=== PATIENT | male | born 1985 | race Caucasian/White ===

== ENCOUNTER 2017-09-23 22:05 | Day surgery (SDC) | payer MEDICAID ==
[~2017-09-23] VITALS: Ht 180.3 cm; Wt 96.0 kg
[2017-09-24] VITALS (7 sets, daily range): BP systolic 105–128; BP diastolic 51–78; Ht 180.3 cm; Wt 96.0 kg
[2017-09-24 06:21] LABS: BASOPHILS 0.5 % (0-2); EOSINOPHILS 2.7 % (0-7); HEMATOCRIT 43.4 % (42.0-54.0); HEMOGLOBIN 14.8 g/dL (13.5-17.5); IMMATURE GRANULOCYTES 0.3 % (0-5); LYMPHOCYTES 19.5 % (15-50); MCH 30.2 pg (26.0-34.0); MCHC 34.1 g/dL (31.0-37.0); MCV 88.6 fL (80.0-100.0); MONOCYTES 6.4 % (2-11); NEUTROPHILS 70.6 % (40-80); PLATELET COUNT 218 10x3/uL (130-400); RDW 12.5 % (11.5-14.5); WBC 6.6 10x3/uL (4.8-10.8)
[2017-09-24 07:05] LABS: ALBUMIN 3.4 g/dL (3.4-5.0); ANION GAP 13.6 mmol/L (8-16); BILIRUBIN - TOTAL 3.06 mg/dL (0.2-1.3); CALCIUM 8.6 mg/dL (8.5-10.1); CARBON DIOXIDE 27.3 mmol/L (21.0-32.0); CREATININE - SERUM 1.2 mg/dL (0.6-1.3); POTASSIUM - SERUM 3.9 mmol/L (3.5-5.1); PROTEIN - SERUM 6.7 g/dL (6.4-8.2)
[2017-09-25 05:14] VITALS: BP 94/47
[2017-09-25 06:30] LABS: BASOPHILS 0.1 % (0-2); EOSINOPHILS 0.1 % (0-7); HEMATOCRIT 40.1 % (42.0-54.0); HEMOGLOBIN 13.8 g/dL (13.5-17.5); IMMATURE GRANULOCYTES 0.4 % (0-5); LYMPHOCYTES 11.8 % (15-50); MCH 30.2 pg (26.0-34.0); MCHC 34.4 g/dL (31.0-37.0); MCV 87.7 fL (80.0-100.0); MONOCYTES 6.5 % (2-11); NEUTROPHILS 81.1 % (40-80); PLATELET COUNT 219 10x3/uL (130-400); RBC 4.57 10x6/uL (4.20-6.10); RDW 12.2 % (11.5-14.5)
[2017-09-25 06:52] LABS: WBC 11.3 10x3/uL (4.8-10.8)
[2017-09-25 06:58] LABS: ALBUMIN 3.1 g/dL (3.4-5.0); ANION GAP 10.2 mmol/L (8-16); BILIRUBIN - DIRECT 0.33 mg/dL (0.00-0.30); BILIRUBIN - INDIRECT 0.61 mg/dL (0.00-1.00); BILIRUBIN - TOTAL 0.94 mg/dL (0.2-1.3); CALCIUM 8.6 mg/dL (8.5-10.1); CARBON DIOXIDE 29.1 mmol/L (21.0-32.0); CREATININE - SERUM 1.3 mg/dL (0.6-1.3); POTASSIUM - SERUM 4.3 mmol/L (3.5-5.1); PROTEIN - SERUM 6.4 g/dL (6.4-8.2)
[2017-09-25 08:01] VITALS: BP 105/50
[2017-09-25] MEDS ORDERED: HYDROCODON-ACE1 EAC7 PO (08:17)
== END 2017-09-25 09:55 | disposition home or self-care (01) ==
LOC: OBSVTIME → D.ER 22:05 → D.OPS 22:05 → OBSVTIME 22:56 → D.ER 22:56 → D.M2 22:56 → D.EDHOLD 22:56 → D.M2 23:30 → D.EDHOLD 23:30 → D.ER 09-24 00:06 → EDSTATUS 09-24 17:00 → D.OPS 09-25 09:55 → D.M2 09-25 09:55
PROVIDERS: Family Medicine; Surgery
DX: K81.0 Acute cholecystitis (principal); F17.200 Nicotine dependence, unspecified, uncomplicated; E05.90 Thyrotoxicosis, unspecified without thyrotoxic crisis or storm; Z01.812 Encounter for preprocedural laboratory examination

== ENCOUNTER 2017-10-19 10:16 | Observation (INO) | payer MEDICAID ==
[~2017-10-19] VITALS: Ht 180.3 cm; Wt 97.7 kg
[~2017-10-19 10:16] MED LIST: HYDROCODON-ACE1 EAC7 PO
[2017-10-19 11:03] LABS: BASOPHILS 0.6 % (0-2); HEMOGLOBIN 16.1 g/dL (13.5-17.5); IMMATURE GRANULOCYTES 0.6 % (0-5); LYMPHOCYTES 29.1 % (15-50); MCH 30.9 pg (26.0-34.0); MCV 88.3 fL (80.0-100.0); MONOCYTES 12.5 % (2-11); NEUTROPHILS 53.2 % (40-80); PLATELET COUNT 228 10x3/uL (130-400); RBC 5.21 10x6/uL (4.20-6.10); RDW 12.7 % (11.5-14.5)
[2017-10-19 11:32] LABS: APPEARANCE HAZY (CLEAR); COLOR AMBER (YELLOW); GLUCOSE NEGATIVE (NEGATIVE); NITRITE NEGATIVE (NEGATIVE); PROTEIN NEGATIVE (NEGATIVE); SPECIFIC GRAVITY 1.025 (1.005-1.020)
[2017-10-19 11:33] LABS: BACTERIA FEW /hpf (NONE SEEN); BILIRUBIN 2+ (NEGATIVE); EPITHELIAL CELLS 0-5 /hpf (0-5); KETONE NEGATIVE (NEGATIVE); MUCUS >1+ /lpf (NONE SEEN); WHITE CELLS - URINE OCC /hpf (0-5)
[2017-10-19 12:16] LABS: ALBUMIN 3.8 g/dL (3.4-5.0); ANION GAP 16.2 mmol/L (8-16); BILIRUBIN - TOTAL 3.29 mg/dL (0.2-1.3); CALCIUM 9.2 mg/dL (8.5-10.1); CARBON DIOXIDE 26.8 mmol/L (21.0-32.0); CREATININE - SERUM 1.2 mg/dL (0.6-1.3)
[2017-10-19 15:00] VITALS: BP 121/78
[2017-10-19 18:05] VITALS: BP 114/65; Ht 180.3 cm; Wt 97.7 kg
[2017-10-19 20:00] VITALS: BP 116/69
[2017-10-20 04:00] VITALS: BP 121/73
[2017-10-20 07:46] LABS: BASOPHILS 0.9 % (0-2); EOSINOPHILS 4.4 % (0-7); HEMATOCRIT 43.3 % (42.0-54.0); HEMOGLOBIN 14.9 g/dL (13.5-17.5); IMMATURE GRANULOCYTES 0.5 % (0-5); MCH 30.5 pg (26.0-34.0); MCHC 34.4 g/dL (31.0-37.0); MCV 88.5 fL (80.0-100.0); MEAN PLATELET VOLUME 11.1 fL (7.4-10.4); NEUTROPHILS 55.2 % (40-80); PLATELET COUNT 210 10x3/uL (130-400); RBC 4.89 10x6/uL (4.20-6.10); RDW 12.7 % (11.5-14.5); WBC 5.7 10x3/uL (4.8-10.8)
[2017-10-20 07:56] LABS: APTT 28.2 SECONDS (22.8-39.4); INR 0.92 (0.85-1.17)
[2017-10-20 08:13] LABS: ALBUMIN 3.1 g/dL (3.4-5.0); ALKALINE PHOSPHATASE 94 U/L (46-116); ALT (SGPT) 350 U/L (10-68); AMYLASE - SERUM 20 U/L (25-115); BILIRUBIN - DIRECT 1.94 mg/dL (0.00-0.30); BILIRUBIN - TOTAL 2.59 mg/dL (0.2-1.3); CALC OSMOLALITY 277 mosm/kg (275-300); CALCIUM 8.5 mg/dL (8.5-10.1); CARBON DIOXIDE 27.9 mmol/L (21.0-32.0); CHLORIDE - SERUM 105 mmol/L (98-107); CREATININE - SERUM 1.1 mg/dL (0.6-1.3); GLUCOSE 100 mg/dL (74-106); LIPASE 178 U/L (73-393); POTASSIUM - SERUM 4.2 mmol/L (3.5-5.1); PROTEIN - SERUM 6.7 g/dL (6.4-8.2); SODIUM 140 mmol/L (136-145); UREA NITROGEN 10 mg/dL (7-18); eGFR NON AFRICAN AMERICAN 81 mL/min (90-120)
[2017-10-20 08:34] VITALS: BP 111/64
[2017-10-21 12:20] LABS: HEPATITIS C ANTIBODY <0.1 (0.0-0.9)
== END 2017-10-20 13:07 | disposition short-term general hospital (02) ==
LOC: D.ER 10:16 → D.M2 13:28 → OBSVTIME 13:28 → D.EDHOLD 13:28 → D.M2 15:14
PROVIDERS: Family Medicine; Surgery
DX: K80.50 Calculus of bile duct without cholangitis or cholecystitis without obstruction (principal); R17 Unspecified jaundice